=== PATIENT | male | born 1975 | race Hispanic/Latino ===

== ENCOUNTER 2023-07-13 09:44 | Inpatient (IN) | payer MEDICAID, SELFPAY ==
[2023-07-13] VITALS (40 sets, daily range): BP systolic 119–139; BP diastolic 65–89; PULSE 75–112; RESP 14–30; TEMP 36.6–36.9; O2SAT 93–100; BMI 39.8
[2023-07-13 10:20] LABS: Basophils Percent Auto 0.4 % (0.2-1.2); Eosinophils Absolute Auto 0.1 K/mm3 (0-0.3); Eosinophils Percent Auto 0.5 % (0-4.4); Hemoglobin 16.2 g/dL (14.0-18.0); Immature Granulocyte Absolute 0.04 K/mm3 (0.00-0.031); Immature Granulocyte Percent A 0.4 % (0-0.5); Lymphocytes Absolute Auto 2.03 K/mm3 (0.9-3.2); Lymphocytes Percent Auto 17.9 % (18.3-44.2); Mean Corpuscular HGB Conc 34.5 g/dl (32-36); Mean Corpuscular Hemoglobin 28.6 pg (26-34); Mean Platelet Volume 9.8 fl (7.4-10.4); Monocytes Absolute Auto 0.4 K/mm3 (0.1-0.6); Monocytes Percent Auto 3.4 % (2.6-8.5); Neutrophils Absolute Auto 8.8 K/mm3 (1.3-6.7); Neutrophils Percent Auto 77.4 % (45.5-73.1); Platelet Count Result 302 k/mm3 (150-375); Red Blood Count 5.66 M/mm3 (4.6-6.20); White Blood Count 11.3 K/mm3 (4.5-10.0)
[2023-07-13 10:37] LABS: Alanine Aminotransferase 33 U/L (6-50); Albumin Level 5.2 g/dL (3.5-5.1); Alkaline Phosphatase 128 U/L (38-126); Anion Gap 21 mmol/L (4-12); Aspartate Amino Transferase 38 U/L (17-59); Blood Urea Nitrogen 21 mg/dL (9-20); Calcium 9.7 mg/dL (8.4-10.2); Carbon Dioxide 17 mmol/L (22-30); Chloride 99 mmol/L (98-107); Estimated Glomerular Filt Rate > 60; Glucose 218 mg/dL (65-110); Lipase 135 U/L (23-300); Potassium 4.4 mmol/L (3.4-5.0); Sodium 137 mmol/L (137-145)
[2023-07-13] MEDS: FAMOTIDINE 20 MG/2 ML VIAL IV PUSH (10:38)
[2023-07-13] MEDS: LACTATED RINGERS 2,000 ML 999 ML IV CONT (10:38)
--- NOTE | 2023-07-13 10:40 | ED.GENADULT ---
HPI - General Adult General Chief complaint: Unspecified <Halley Moulton July, Last Filed: 07/13/23 19:30> Stated complaint: weak, decreased appetite, dry throat, dizzy, ABD <Halley Moulton July, Last Filed: 07/13/23 19:30> Time Seen by Provider: 07/13/23 10:10 <Halley Moulton July, Last Filed: 07/13/23 19:30> History of Present Illness HPI narrative: Donal Fowler is a 47 y/o Faroese speaking male - through the sewing machine bobbin winder pt reports that he started to have abdominal burning/ pain about 1 week ago that was consistent for about 4 days but now has improved and is gone. He states that since about Wednesday ( three days ) he has felt generalized fatigue/ weakness/ blurry vision / dry mouth / no appetite / not been eating much food but drinking water. Denies fever/chills/ denies nausea /vomiting/ not on any medications daily and states that he has a hx of possible elevated cholesterol and was told to change his diet which he has. Denies chest pain/ SOB / sore throat <Halley Moulton July, Last Filed: 07/13/23 19:30> Related Data Allergies/adverse reactions: Allergies Allergy/AdvReac Type Severity Reaction Status Date / Time No Known Allergies Allergy Verified 07/13/23 10:01 <Halley Moulton July, Last Filed: 07/13/23 19:30> Review of Systems Review of Systems: CONSTITUTIONAL: Denies fever, chills, or sweats. EYES: Denies visual changes, redness, or discharge. ENT: Denies rhinorrhea, congestion, sore throat, or otalgia. CARDIOVASCULAR: Denies chest pain, palpitations, or edema. RESPIRATORY: Denies cough or dyspnea. GASTROINTESTINAL: Denies abdominal pain, nausea, vomiting, or diarrhea. GENITOURINARY: Denies dysuria or hematuria. SKIN: Denies rash or itching. MUSCULOSKELETAL: Denies back pain, joint pain, or myalgia. NEUROLOGIC: Denies headache, numbness, dizziness, or weakness. PSYCHIATRIC: Denies anxiety or depression. <Halley Moulton July, Last Filed: 07/13/23 19:30> PMFSH Past Medical History Medical History: Medical History (Updated 07/14/23 @ 12:16 by Joon Madden MD) No pertinent past medical history <Halley EvitaJorge L July, - Last Filed: 07/13/23 19:30> Surgical History Surgical History: Surgical History (Updated 07/13/23 @ 22:45 by Julianna Lira PA-C) No history of previous surgery <Halley Moulton July, - Last Filed: 07/13/23 19:30> Family History Family History: Family History (Updated 07/13/23 @ 22:45 by Julianna Lira PA-C) Sibling Diabetes mellitus <Halley Moulton July,N - Last Filed: 07/13/23 19:30> Social History Social History: Social History (Updated 07/13/23 @ 22:46 by Julianna Lira PA-C) Social History: Code status: Full code. Smoking status: Never smoker Alcohol intake: never Substance use: never Do You Feel Safe in your Home?: Yes Lack of Transportation: No Lack of Food: Never True Current Housing: I Have Housing Concerned About Future Housing: Decline to Answer Difficulty Paying Gas/Electric Bills: Decline to Answer Difficulty Paying for Meds: Decline to Answer Currently Unemployed: Decline to Answer Education: Decline to Answer Difficulty w/ Childcare or Family Care: Decline to Answer Additional living arrangements comments: Lives with family in [place]. 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 Spiritual care concerns: No <Halley Moulton July, - Last Filed: 07/13/23 19:30> Exam Narrative: GENERAL: Well-appearing, well-nourished, and in no acute distress + dry lips HEAD: Normocephalic, atraumatic. EYES: PERRLA and EOMI. ENT: Nares clear, no rhinorrhea or epistaxis. Mucous membranes dry. Oropharynx without tonsillar hypertrophy exudate or other lesions. NECK: Supple. No adenopathy or masses. No carotid bruits or JVD CHEST: Clear to auscultation. No respiratory distress. No wheezes rales or rhonchi HEART: Regular rate and rhythm. No murmur heard. Deanna
[2023-07-13 11:17] LABS: Appearance Urine Clear (Clear); Bacteria Urine None Seen /hpf; Bilirubin Urine Negative (Negative); Blood Urine Negative (Negative); Color Urine Yellow (Yellow); Glucose Urine UA 3+ mg/dL (Negative); Hyaline Casts Urine Present /lpf; Ketones Urine 4+ mg/dL (Negative); Leukocyte Esterase Ur Negative LEU/UL (Negative); Mucus Urine Present /lpf; Nitrate Urine Negative (Negative); Non Pathogenic Casts >20; Protein Urine 2+ mg/dL (Negative); RBC Urine 0-2 /hpf (0-2); Spermatozoa Urine Present; Squamous Epithelial Cell Urine None Seen /hpf (Few); Urobilinogen Urine 0.2 mg/dL (<2.0); WBC Urine 0-5 /hpf (0-3)
[2023-07-13 11:19] LABS: Add Urine Microscopic? YES; Specific Grav Ur 1.036 (1.001-1.035)
[2023-07-13 13:06] LABS: Anion Gap 15 mmol/L (4-12); Blood Urea Nitrogen 17 mg/dL (9-20); Calcium 8.5 mg/dL (8.4-10.2); Carbon Dioxide 16 mmol/L (22-30); Chloride 105 mmol/L (98-107); Estimated Glomerular Filt Rate > 60; Glucose 137 mg/dL (65-110); Potassium 4.5 mmol/L (3.4-5.0); Sodium 136 mmol/L (137-145)
[2023-07-13 15:31] LABS: Beta-Hydroxybutyrate/Acetoacetate 6.74 mmol/L (0.02-0.27)
[2023-07-13 17:34] LABS: Device ROOM AIR; Fractional Inspired Oxygen 21 %; HCO3 VBG 15.5 mEq/l (24.0-30.0); PCO2 VBG 32.3 mmHg (42.0-48.0); PO2 VBG 46.3 mmHg (35.0-45.0); pH VBG 7.299 (7.300-7.400)
[2023-07-13] MEDS: SODIUM CHLORIDE 0.9% IV 1,000 ML 999 ML IV CONT (18:29)
[2023-07-13 18:33] LABS: Glucose Point of Care 93 mg/dl (65-105)
--- NOTE | 2023-07-13 18:42 | PC.NURSE ---
patient transferred to IMU with IVF bolus infusing
--- NOTE | 2023-07-13 18:50 | ADMGEN ---
This patient, Donal Fowler, was admitted to IMU Room 212-01. Patient/family oriented to hospital policies and general routines including ID bracelet, bed and alarms, visiting hours, pain management, procedures, bathroom and other care routines, personal items, smoking policy, room service/diet, and visiting hours. Information on how to activate the Rapid Response Team has been discussed. Patient/Family are encouraged to report perceived risks to care and to ask questions if they do not understand what they are told or what they should do.
--- NOTE | 2023-07-13 19:46 | PM.IMHP ---
H&P: HPI History of Present Illness Date/Time: 07/13/23 19:00 Chief Complaint: Multiple complaints. Narrative: This is a very pleasant 47-year-old Yi speaking male with no reported medical problems who presented to the emergency department via private vehicle with multiple complaints. The patient provides the following history with the aid of a courtesy bus driver. He has not been feeling well for a little over a week. Initially his symptoms were mainly GI related with diffuse upper abdominal burning, poor appetite, and nausea. The past 3 days he has been extremely thirsty and reports drinking a lot and urinating a lot. His vision has been blurry. He has felt increasingly weak and fatigued despite getting adequate rest. He also had a couple of episodes of nonbloody and nonbilious emesis over the weekend. He thinks he has lost some weight in the last couple of weeks as well. He has been taking Tylenol at home for symptoms but nothing else. He has mild tingling in his feet on occasion. He denies fever, chills, sweats, headache, sinus congestion, sore throat, cough, chest pain, shortness a breath, hematemesis, diarrhea, melena, hematochezia, and dysuria. No nonhealing wounds. In the ED: He was afebrile on arrival with stable blood pressures. Labs were significant for a WBC count of 11.3, hemoglobin 16.2, sodium 137, potassium 4.4, carbon dioxide 17, anion gap 21, BUN 21, creatinine 0.90, glucose 218, total protein 9.0, albumin 5.2, beta hydroxybutyrate 6.74. urine was positive for 2+ protein, 3+ glucose, and 4+ ketones. He received 2 L crystalloids with a repeat BMP showing a glucose of 137, anion gap 15, and a carbon dioxide of 16. Given some improvement his labs it was felt that he would continue to improve with hydration and he was admitted to IMU for close monitoring. Unfortunately repeat BMP later this evening showed worsening acidosis and hyperglycemia and he is being transferred to the ICU on an insulin drip. Review of Systems Review of Systems: 12 systems were reviewed and are negative except for as per HPI. [facility] Past Medical History Medical History (Updated 07/13/23 @ 22:48 by Julianna Lira PA-C) No pertinent past medical history Surgical History Surgical History (Updated 07/13/23 @ 22:45 by Julianna Lira PA-C) No history of previous surgery Family History Family History (Updated 07/13/23 @ 22:45 by Julianna Lira PA-C) Sibling Diabetes mellitus Social History Social History (Updated 07/13/23 @ 22:46 by Juilanna Lira PA-C) Social History: Code status: Full code. Smoking status: Never smoker Alcohol intake: never Substance use: never Do You Feel Safe in your Home?: Yes Lack of Transportation: No Lack of Food: Never True Current Housing: I Have Housing Concerned About Future Housing: Decline to Answer Difficulty Paying Gas/Electric Bills: Decline to Answer Difficulty Paying for Meds: Decline to Answer Currently Unemployed: Decline to Answer Education: Decline to Answer Difficulty w/ Childcare or Family Care: Decline to Answer Additional living arrangements comments: Lives with family in [place]. 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 Spiritual care concerns: No Meds Home Medications and Allergies Home Medications Medication Instructions Recorded Confirmed Type No Home Medications 07/13/23 07/13/23 History Allergies Allergy/AdvReac Type Severity Reaction Status Date / Time No Known Allergies Allergy Verified 07/13/23 10:01 Vital Signs Vital Signs - 24 hr 07/13/23 10:02 07/13/23 10:44 07/13/23 10:00 Temperature 98.0 F Pulse Rate 112 H 98 108 H Respiratory Rate 18 30 H Blood Pressure 139/84 139/84 Pulse Oximetry 97 98 07/13/23 10:01 07/13/23 10:15 07/13/23 10:16 Temperature Pulse Rate 109 H 107 H 105 H Respiratory Rate 28 H 22 H 21 H Blood Pressure 133/89 Pulse Oximetry 99 94 97 07/12
[2023-07-13 19:51] LABS: Glucose Point of Care 93 mg/dl (65-105)
[2023-07-13 20:13] LABS: Glucose Point of Care 290 mg/dl (65-105)
[2023-07-13 20:38] LABS: Anion Gap 14 mmol/L (4-12); Blood Urea Nitrogen 16 mg/dL (9-20); Calcium 8.1 mg/dL (8.4-10.2); Carbon Dioxide 13 mmol/L (22-30); Chloride 106 mmol/L (98-107); Estimated Glomerular Filt Rate > 60; Glucose 296 mg/dL (65-110); Potassium 4.4 mmol/L (3.4-5.0); Sodium 133 mmol/L (137-145)
[2023-07-13 22:09] LABS: Glucose Point of Care 355 mg/dl (65-105)
--- NOTE | 2023-07-13 22:47 | PC.NURSE ---
The most recent FSBS results called to provider for concerning trend. The decision was made to move the patient to ICU.
--- NOTE | 2023-07-13 23:02 | PC.NURSE ---
Patient transferred to ICU-9. Report given to Karthik BISHOP. The situation has been explained to the patient's satisfaction via our interpreting service. He has notified his family of the change and all his belongings were sent with him. Patient currently alert and oriented and in otherwise stable condition.
[2023-07-13 23:13] LABS: Anion Gap 14 mmol/L (4-12); Blood Urea Nitrogen 19 mg/dL (9-20); Calcium 8.3 mg/dL (8.4-10.2); Carbon Dioxide 15 mmol/L (22-30); Chloride 104 mmol/L (98-107); Estimated Glomerular Filt Rate > 60; Glucose 312 mg/dL (65-110); Magnesium 2.1 mg/dL (1.6-2.3); Phosphorus 3.5 mg/dL (2.5-4.5); Potassium 4.1 mmol/L (3.4-5.0); Sodium 133 mmol/L (137-145)
[2023-07-13] MEDS: SODIUM CHLORIDE 0.9% IV 1,000 ML 150 ML IV CONT (23:13)
[2023-07-13 23:17] LABS: Glucose Point of Care 296 mg/dl (65-105)
[2023-07-13] MEDS: INSULIN HUMAN REGULAR (*BKC) 100 UNITS in SODIUM CHLORIDE 0.9% IV 99 ML 6.95 UNITS IV CONT (23:45)
--- NOTE | 2023-07-13 23:55 | PC.NURSE ---
pt transferd from IMU in a bed pt placed on monitor
[2023-07-14] VITALS (12 sets, daily range): BP systolic 97–119; BP diastolic 59–81; PULSE 50–79; RESP 13–21; TEMP 36.1–36.7; O2SAT 88–100; BMI 40.4
[2023-07-14] MEDS: KCL 20 MEQ/D5/0.45% SOD CHL 1,000 ML 150 ML IV CONT (00:34)
[2023-07-14 00:36] LABS: Glucose Point of Care 202 mg/dl (65-105)
[2023-07-14 01:40] LABS: Glucose Point of Care 160 mg/dl (65-105)
[2023-07-14 02:54] LABS: Glucose Point of Care 163 mg/dl (65-105)
[2023-07-14 03:51] LABS: Anion Gap 7 mmol/L (4-12); Blood Urea Nitrogen 17 mg/dL (9-20); Calcium 8.1 mg/dL (8.4-10.2); Carbon Dioxide 21 mmol/L (22-30); Chloride 110 mmol/L (98-107); Estimated Glomerular Filt Rate > 60; Glucose 162 mg/dL (65-110); Potassium 3.6 mmol/L (3.4-5.0); Sodium 138 mmol/L (137-145)
[2023-07-14 04:15] LABS: Glucose Point of Care 161 mg/dl (65-105)
[2023-07-14 05:09] LABS: Glucose Point of Care 161 mg/dl (65-105)
[2023-07-14] MEDS: INSULIN GLARGINE (*BKC) 100 UNITS/ML 8 UNITS SUB-Q (05:24)
[2023-07-14 06:09] LABS: Glucose Point of Care 132 mg/dl (65-105)
[2023-07-14 07:10] LABS: Glucose Point of Care 147 mg/dl (65-105)
[2023-07-14 07:40] LABS: Glucose Point of Care 137 mg/dl (65-105)
[2023-07-14] MEDS: ENOXAPARIN 40 MG/0.4 ML SYRINGE SUB-Q (08:09)
[2023-07-14] MEDS: PANTOPRAZOLE SODIUM IV 40 MG VIAL IV PUSH ×2 (08:09→21:05)
[2023-07-14 08:11] LABS: Hematocrit 44.4 % (42.0-52.0); Hemoglobin 14.9 g/dL (14.0-18.0); Mean Corpuscular HGB Conc 33.6 g/dl (32-36); Mean Corpuscular Hemoglobin 28.5 pg (26-34); Mean Corpuscular Volume 85.1 fl (80-100); Mean Platelet Volume 9.7 fl (7.4-10.4); Platelet Count Result 260 k/mm3 (150-375); Red Blood Count 5.22 M/mm3 (4.6-6.20); Red Cell Distribution Width 12.1 % (11.5-14.5)
[2023-07-14 08:24] LABS: Anion Gap 8 mmol/L (4-12); Blood Urea Nitrogen 13 mg/dL (9-20); Calcium 8.5 mg/dL (8.4-10.2); Carbon Dioxide 20 mmol/L (22-30); Chloride 109 mmol/L (98-107); Cholesterol 240 mg/dL (0-200); Estimated Glomerular Filt Rate > 60; Glucose 134 mg/dL (65-110); HDL Direct 37 mg/dL; Sodium 137 mmol/L (137-145); Triglycerides 441 mg/dL (<150)
[2023-07-14 08:31] LABS: LDL Cholesterol Direct 99 mg/dL
--- NOTE | 2023-07-14 11:00 | WPDCNINT ---
Assessment and Plan Assessment and plan (1) DKA (diabetic ketoacidosis): Qualifiers: Diabetes mellitus complication detail: without coma Diabetes mellitus type: other specified (including RYLEE) Qualified Code(s): E13.10 - Other specified diabetes mellitus with ketoacidosis without coma Code(s): E11.10 - Type 2 diabetes mellitus with ketoacidosis without coma Status: Acute Assessment and Plan: Patient presented with generalized weakness, abdominal pain, nausea, vomiting, polyphagia, polydipsia and polyuria. Was given a total of 3 L IV fluids. It to the IMU with his anion gap and acidosis continue to worsen was transferred to the ICU for insulin infusion -early this morning the anion gap closed, patient was transition to long-acting insulin and sliding scale insulin -patient has been started on diabetic diet -shingle shearing machine operator and dietitian will be evaluating the patient -I did explain to him that he has a new onset diabetic with the help of the machine clothing man services. -will continue Lantus and sliding scale insulin (2) New onset type 2 diabetes mellitus: Code(s): E11.9 - Type 2 diabetes mellitus without complications Status: Acute Assessment and Plan: Hemoglobin A1c was 10.0 this admission -continue Lantus and sliding scale insulin -continue diabetic diet Plan DVT prophylaxis: Lovenox Stress ulcer prophylaxis: Protonix Nutrition: Diabetic diet Code Status: Full code Critical Care Time Spent: 46 minutes Using the machine clothing man services, I discussed with the patient and updated with his condition and plan of care. I answered all his questions Due to a high probability of clinically significant, life threatening deterioration, the patient required my highest level of preparedness to intervene emergently and I personally spent this critical care time directly and personally managing the patient. This critical care time included obtaining a history; examining the patient; pulse oximetry; ordering and review of studies; arranging urgent treatment with development of a management plan; evaluation of patient's response to treatment; frequent reassessment; and discussions with other providers. It was exclusive of separately billable procedures and treating other patients and teaching time. Please see Assessment and Plan section and the rest of the note for further information on patient assessment and treatment This dictation may have been done utilizing a voice recognition system. Attempts have been made to correct errors. However, there may be uncorrected grammatical, spelling, and recognitions errors present. Economics Lecturer Consult Note Consult date: 07/14/23 Reason for consult: Diabetic ketoacidosis HPI: Donal Fowler is a 47 year old male with past medical history of anxiety presented the ED on 07/13/2023 with complains of generalized weakness, nausea, abdominal pain, vomiting which started around a week ago around 07/07/2023. Patient also complained polyuria, polyphagia and polydipsia for the past 3-4 days. He also complained of some blurred vision feeling of numbness and tingling in his legs bilaterally. Patient denies any fevers, chills, headaches, sore throat, cough, chest pain, shortness of breath. In the ER he was found to have an elevated WBC count of 11.3, hemoglobin of 16.2, sodium 137, potassium 4.4, CO2 17, anion gap of 21, BUN 21, creatinine 0.9, blood sugars 218. Beta hydroxybutyrate was elevated, UA was positive for 2+ protein, 3+ glucose and 4+ ketones. He received a total of 3 L of IV fluids was was admitted intermediate Unit, repeated BMP worsening of anion gap and metabolic acidosis, patient was transfer the ICU for insulin infusion. Patient seen and examined in the ICU setting, information above was obtained using the fingerer services with the help of a machine clothing man. Patient denies any chest pain, shortness with abdominal pain, nausea vomiti
[2023-07-14 11:06] LABS: Glucose Point of Care 158 mg/dl (65-105)
--- NOTE | 2023-07-14 12:14 | PM.IMPN ---
Progress Note: A&P Assessment and Plan (1) Diabetic ketoacidosis associated with type 2 diabetes mellitus: Qualifiers: Diabetes mellitus complication detail: without coma Qualified Code(s): E11.10 - Type 2 diabetes mellitus with ketoacidosis without coma Code(s): E11.10 - Type 2 diabetes mellitus with ketoacidosis without coma Status: Acute Assessment and Plan: HBA1c pending( goal <7.0%) , Renal functions, Liver panel every 3 months Monitor vitamin B12 levels Optimize OCTAVIO-inhibitor and statin Routine glucose monitoring. Watch for Hypoglycemia. BMI goal < 25 Yearly eye exam and foot exam advised and educated Exercise, Diet ( low salt- low carb) Weight loss Routinely check for urine microalbuminuria Routine follow-up with PCP and liquefied natural gas operator continue sliding scale. IV insulin has been discontinued. In and get back to baseline. Will resume insulin and atorvastatin and OCTAVIO-inhibitor. patient will go home on Lantus 8 units subcutaneously and mealtime insulin 3 units with each meal social group worker advised may need financial help to get medication (2) Increased anion gap metabolic acidosis: Code(s): E87.29 - Other acidosis Status: Acute Plan DVT prophylaxis. Lovenox GI prophylaxis. PPI All records reviewed Discussed plan of care with the nursing staff and with the patient in detail. Answered all questions and concerns from the patient. All labs have been reviewed. Code status updated dictation may have been done utilizing a voice recognition system. Attempts have been made to correct errors. However, there may be uncorrected grammatical, spelling, and recognition errors present. Subjective Date/time seen: 07/14/23 12:14 Interval history: patient has been speaking most of the history obtained through the commercial real estate underwriter denies any complaint. Manager Pool bedside discussing and doing diabetic teaching in [place]se with the help of a commercial real estate underwriter Exam Narrative: General: Pleasant patient in no acute distress, [place]se-speaking HEENT:? Pupils equal and reactive sclera is clear, moist oral mucosa Neck:? Supple Respiratory:? Clear to auscultation bilaterally Cardiac:? S1-S2 is normal, since regular rate and rhythm Abdomen:? Soft, nontender, nondistended, normoactive bowel sounds Extremities:? No edema, palpable pedal pulses Neuro:? Patient is awake, alert, oriented, answers to questions appropriately and follows simple commands in all extremities Skin:? No lesions noted, warm and dry Psych:? Normal mentation and have Objective Data Vital Signs Vital Signs: Vital Signs - 24 hr 07/13/23 12:15 07/13/23 12:31 07/13/23 12:45 Temperature Pulse Rate 76 79 88 Respiratory Rate 20 20 23 H Blood Pressure Pulse Oximetry 98 98 100 Oxygen Delivery Oxygen Flow Rate 07/13/23 13:11 07/13/23 13:15 07/13/23 13:41 Temperature Pulse Rate 87 83 82 Respiratory Rate 18 21 H 14 Blood Pressure Pulse Oximetry 100 100 100 Oxygen Delivery Oxygen Flow Rate 07/13/23 13:45 07/13/23 14:19 07/13/23 14:30 Temperature Pulse Rate 80 81 80 Respiratory Rate 14 27 H 23 H Blood Pressure Pulse Oximetry 99 98 98 Oxygen Delivery Oxygen Flow Rate 07/13/23 14:48 07/13/23 15:00 07/13/23 15:24 Temperature Pulse Rate 79 75 83 Respiratory Rate 23 H 23 H 24 H Blood Pressure Pulse Oximetry 98 98 Oxygen Delivery Oxygen Flow Rate 07/13/23 15:30 07/13/23 15:45 07/13/23 17:32 Temperature Pulse Rate 82 78 Respiratory Rate 20 25 H Blood Pressure 119/82 Pulse Oximetry 99 98 98 Oxygen Delivery Oxygen Flow Rate 07/13/23 17:33 07/13/23 17:50 07/13/23 18:00 Temperature Pulse Rate Respiratory Rate Blood Pressure 125/69 Pulse Oximetry 100 97 97 Oxygen Delivery Oxygen Flow Rate 07/13/23 18:01 07/13/23 18:15 07/13/23 19:10 Temperature 36.9 C Pulse Rate 87 Respiratory Rate 22 H Blood P
[2023-07-14 12:43] LABS: Hemoglobin A1C 10.1 % (<5.7)
[2023-07-14] MEDS: lisinopriL 5 MG TABLET PO (14:30)
[2023-07-14] MEDS: ASPIRIN 81 MG CHEWABLE TABLET PO (14:30)
[2023-07-14] MEDS: ATORVASTATIN 40 MG TABLET PO (14:30)
[2023-07-14 16:33] LABS: Glucose Point of Care 160 mg/dl (65-105)
[2023-07-14 20:57] LABS: Glucose Point of Care 168 mg/dl (65-105)
[2023-07-15 06:00] VITALS: BP 105/66; PULSE 59; RESP 14; TEMP 36.3; O2SAT 100
[2023-07-15 07:41] LABS: Glucose Point of Care 137 mg/dl (65-105)
[2023-07-15] MEDS: PANTOPRAZOLE SODIUM IV 40 MG VIAL IV PUSH (08:45)
[2023-07-15] MEDS: ENOXAPARIN 40 MG/0.4 ML SYRINGE SUB-Q (08:45)
[2023-07-15] MEDS: ATORVASTATIN 40 MG TABLET PO (08:46)
[2023-07-15] MEDS: lisinopriL 5 MG TABLET PO (08:46)
[2023-07-15] MEDS: ASPIRIN 81 MG CHEWABLE TABLET PO (08:46)
[2023-07-15] MEDS: INSULIN GLARGINE (*BKC) 100 UNITS/ML 8 UNITS SUB-Q (08:47)
--- NOTE | 2023-07-15 11:46 | PM.DS ---
DS: Admitting Diagnosis Discharge Date 07/15/23 Admitting Diagnosis DKA DS: Discharge Diagnosis Discharge Diagnosis (1) Dehydration: Code(s): E86.0 - Dehydration Status: Acute (2) New onset type 2 diabetes mellitus: Code(s): E11.9 - Type 2 diabetes mellitus without complications Status: Acute (3) Diabetic ketoacidosis associated with type 2 diabetes mellitus: Qualifiers: Diabetes mellitus complication detail: without coma Qualified Code(s): E11.10 - Type 2 diabetes mellitus with ketoacidosis without coma Code(s): E11.10 - Type 2 diabetes mellitus with ketoacidosis without coma Status: Acute (4) Increased anion gap metabolic acidosis: Code(s): E87.29 - Other acidosis Status: Acute Plan patient to follow-up with small package and bundle sorter clerk as an outpatient. To follow-up with the primary care physician as an outpatient. Diabetic teaching has been done in Kyrgyz. Device to stay compliant with medication. Physical Metallurgist consulted for medication issues DS: Summary Hospital Course Reason for hospitalization: This is a very pleasant 47-year-old Kyrgyz speaking male with no reported medical problems who presented to the emergency department via private vehicle with multiple complaints. The patient provides the following history with the aid of a senior java programmer analyst. He has not been feeling well for a little over a week. Initially his symptoms were mainly GI related with diffuse upper abdominal burning, poor appetite, and nausea. The past 3 days he has been extremely thirsty and reports drinking a lot and urinating a lot. His vision has been blurry. He has felt increasingly weak and fatigued despite getting adequate rest. He also had a couple of episodes of nonbloody and nonbilious emesis over the weekend. He thinks he has lost some weight in the last couple of weeks as well. He has been taking Tylenol at home for symptoms but nothing else. He has mild tingling in his feet on occasion. He denies fever, chills, sweats, headache, sinus congestion, sore throat, cough, chest pain, shortness a breath, hematemesis, diarrhea, melena, hematochezia, and dysuria. No nonhealing wounds. In the ED: He was afebrile on arrival with stable blood pressures. Labs were significant for a WBC count of 11.3, hemoglobin 16.2, sodium 137, potassium 4.4, carbon dioxide 17, anion gap 21, BUN 21, creatinine 0.90, glucose 218, total protein 9.0, albumin 5.2, beta hydroxybutyrate 6.74. urine was positive for 2+ protein, 3+ glucose, and 4+ ketones. He received 2 L crystalloids with a repeat BMP showing a glucose of 137, anion gap 15, and a carbon dioxide of 16. Given some improvement his labs it was felt that he would continue to improve with hydration and he was admitted to IMU for close monitoring. Unfortunately repeat BMP later this evening showed worsening acidosis and hyperglycemia and he is being transferred to the ICU on an insulin drip patient was transferred to ICU continued on her insulin drip did well and gap improved patient was given diabetic education in Kyrgyz spoke with dietitian in detail. Patient is cleared for discharge prescriptions have been sent to the pharmacy patient advised to take compliant with medication follow-up with small package and bundle sorter clerk and primary care physician as an outpatient Hospital Course: as above Status at Discharge Cognitive/behavioral status at discharge: stable Time Spent with Patient Time attestation: Total time spent providing and/or coordinating discharge services: Exam Narrative: GENERAL: Well appearing, no acute distress. HEAD: Normocephalic, atraumatic. NECK: Supple. No adenopathy, no masses. RESPIRATORY: respirations nonlabored. , no rales, wheezing. CARDIOVASCULAR: Regular rate and rhythm without murmurs, . Peripheral pulses 2+ and equal bilaterally. ABDOMINAL: Soft, nontender, nondistended, no hepatosplenomegaly. Normoactive BS. MUSCULOSKELETAL: no Epi
[2023-07-15 12:01] LABS: Glucose Point of Care 188 mg/dl (65-105)
--- NOTE | 2023-07-15 13:36 | PC.NURSE ---
d/c instructions gone over with patient using stratus. patient denies any questions. iv out, patient used private car for discharging.
--- NOTE | 2023-07-15 13:43 | PCCDE ---
07/15/23 1:20 ? 1:25 pm Spoke with RN, pt has been discharged, ready to go home. Per RN: pt being discharged on 2 orals, no insulin, she utilized the auto winder for discharge instructions, including explaining DM Rx. No questions. I stopped in, using my limited [place], he was seen by my colleague yesterday and remembered her. Pt denies any additional questions regarding DM. He is excited to leave asking how to get the medical bracelet off. FJ
== END 2023-07-15 13:30 | disposition home or self-care (01) | DRG 420 ==
LOC: ANHED 18:41 → ANHIMU 18:56 → ANHICU 23:19 → ANH3MEDSUR 07-14 13:20
PROVIDERS: Physician Assistant; Student in an Organized Health Care Education/Training Program; Admitting Provider Family Medicine; Emergency Provider Nurse Practitioner Family; Referring Provider Family Medicine; Visit Provider Internal Medicine
DX: E11.10 Type 2 diabetes mellitus with ketoacidosis without coma (principal); E86.0 Dehydration
CPT/HCPCS: 36415; 80048; 80053; 80061; 81001; 82010; 82803; 82948; 83036; 83690; 83735; 84100; 85025; 85027; 96361; 96374; 99285; A9270; C9113; J1650; J1815; J3480; J7030; J7120